=== PATIENT | male | born 1970 | race Caucasian/White ===

== ENCOUNTER 2017-03-28 11:07 | Observation (INO) ==
--- NOTE | 2017-03-28 11:28 | Emergency Department Note ---
Disposition Clinical Impression: Chest pain Qualifiers: Chest pain type: unspecified Qualified Code(s): R07.9 - Chest pain, unspecified Hypertension Qualifiers: Hypertension type: essential hypertension Qualified Code(s): I10 - Essential ( primary) hypertension Disposition: Admitted As Inpatient Condition: Good Referrals: Baljeet Richards MD [Primary Care Provider] - Forms: ED Satisfaction Letter Time of Disposition: 12:16 Chest Pain HPI - General Chief Complaint: ED Chest Pain Stated Complaint: CP Source: patient, family Limitations: no limitations Vital Signs Reviewed: Yes Nursing Notes Reviewed: Yes - History of Present Illness HPI Narrative: 46-year-old with the risk factor of high cholesterol who comes in complaining of intermittent chest pain for last month. Over the last week as gotten progressively worse with radiation into his jaw and shoulder. Patient does have some shoulder issues states that this is a little bit different than what been associated with that shoulder. Pt complaint: chest pain Onset (ago): week(s) Duration: intermittent (4) Onset: during rest, during exertion Pain Location: substernal, left chest Severity: moderate Severity scale (1-10): 7 Quality: tightness, aching, heaviness Pain Radiation: LUE, neck Improves with: nothing Worsens with: nothing Associated symptoms: Denies: dyspnea Treatments prior to arrival chest pain: none - Related Data Allergies Allergy/AdvReac Type Severity Reaction Status Date / Time No Known Allergies Allergy Verified 03/28/17 11:08 All systems ED: reviewed and negative except as stated. Constitutional: Denies: fever, chills, weakness, weight change Eyes: Denies: eye pain, eye discharge, vision change ENT ED: Denies: ear pain, throat pain, dental pain, hearing loss, epistaxis, congestion, dysphagia Cardiovascular: Reports: chest pain. Denies: palpitations, dyspnea on exertion , edema, syncope Respiratory: Denies: cough, dyspnea, wheezes, hemoptysis, stridor Gastrointestinal: Denies: abdominal pain, nausea, vomiting, diarrhea, constipation, hematemesis, melena, hematochezia Genitourinary: Denies: urgency, dysuria, frequency, hematuria Musculoskeletal: Denies: back pain, neck pain, arthralgia, myalgia Integumentary: Denies: rash, abrasion, lesions Neurological: Denies: headache, weakness, numbness, paresthesias, confusion, abnormal gait, vertigo Psychiatric: Denies: anxiety, depression, suicidal thoughts, homicidal thoughts , auditory hallucinations, visual hallucinations Endocrine: Denies: fatigue Hematological/Lymphatic: Denies: easy bleeding, easy bruising Allergic/Immunologic: Denies: facial swelling, urticaria Chest Pain PMH - Past Medical History Medical history: Reports: no medical history Psychiatric history: Reports: no psych history - Social History Smoking Status: Never smoker Alcohol use: Reports: occasionally Drug use: Reports: none Physical Exam - General Limitations: no limitations General appearance: alert, in no apparent distress - Head Head exam: atraumatic, normocephalic, normal inspection - Eye Eye exam: Present: normal appearance, PERRL, EOMI - ENT ENT exam: normal exam, normal oropharynx, mucous membranes moist - Neck Neck exam: Present: normal inspection, full ROM, trachea midline - Chest Chest inspection: Present: normal inspection, symmetric chest wall rise - Respiratory Respiratory exam: Present: normal lung sounds bilaterally - Cardiovascular Cardiovascular exam: Present: regular rate, normal rhythm, normal heart sounds - Abdominal Exam Abdominal exam: Present: soft, Non-Tender. Absent: tenderness, distention, guarding, rebound, rigidity - Extremities Exam Extremities exam: Present: normal inspection, full ROM. Absent: tenderness, pedal edema - Expanded Lower Extremity Exam Neurovascular/Tendon exam: Absent: motor deficit, sensory deficit, tendon deficit Gait: observed and normal - Back Exam Back exam: Present: normal inspection, full ROM. Absent: tenderness - Neurological Exam Neurological exam: Present: alert, oriented X3 - Psychiatric Psychiatric exam: Present: normal affect, normal mood - Skin Skin exam: Present: warm, dry, intact, normal color Course - Reevaluation(s) Reevaluation #1: 46-year-old who has exhibited hypertension here and has a history of elevated cholesterol comes in with intermittent chest pain for last several weeks. Initial EKG shows some repolarization no acute STEMI. Initial troponin was negative. Patient will be admitted for further evaluation and treatment. Time: 12:15 - Consultations Consultation #1: Discussed with Dr. Bowden, admit. Time: 12:16 Vital Signs Temperature 97.7 F 03/28/17 11:08 Pulse Rate 86 03/28/17 11:08 Respiratory Rate 18 03/28/17 11:08 Blood Pressure 166/101 01/02/18 11:08 O2 Sat by Pulse Oximetry 98 03/28/17 11:08 Temperature 97.7 F 03/28/17 11:08 Pulse Rate 86 03/28/17 11:08 Respiratory Rate 18 03/28/17 11:08 Blood Pressure 166/101 03/28/17 11:08 O2 Sat by Pulse Oximetry 98 03/28/17 11:08 Oxygen Delivery Oxygen Delivery Room Air Chest Pain - Lab Data Result diagrams: 03/28/17 11:23 03/28/17 11:23 Lab Results 03/28/17 03/28/17 03/28/17 Range/Units 11:23 11:23 11:23 WBC 5.2 (4.3-11.1) K/mcL RBC 5.74 H (4.19-5.50) M/mcL Hgb 15.5 (12.9-16.9) g/dL Hct 47.3 (37.5-50.1) % MCV 82.4 L (83.0-100.0) fL MCH 27.0 L (28.0-33.3) pg MCHC 32.8 (31.6-35.5) g/dL RDW 13.3 (11.5-14.5) % Plt Count 234 (140-400) K/mcL MPV 10.3 (9.4-12.4) fL Immature Gran % 0.2 (0-4) % Seg Neutrophils % 62.4 % Lymphocytes % 28.5 % Monocytes % 6.2 % Eosinophils % 1.7 % Basophils % 1.0 % Neutrophils # 3.2 (1.6-8.9) K/mcL Lymphocytes # 1.5 (0.6-4.6) K/mcL Monocytes # 0.3 (0.0-1.3) K/mcL Eosinophils # 0.1 (0.0-0.6) K/mcL Basophils # 0.1 (0.0-0.2) K/mcL Sodium 139 (136-145) mEq/L Potassium 4.3 (3.5-5.1) mEq/L Chloride 104 (98-107) mEq/L Carbon Dioxide 30 H (23-29) mEq/L BUN 18 (6-20) mg/dL Creatinine 1.06 (0.70-1.30) mg/dL Est GFR ( Amer) > 60 (> 60) Est GFR (Non-Af Amer) > 60 (> 60) BUN/Creatinine Ratio 17 (6-26) Glucose 101 (70-105) mg/dL Calculated Osmolality 290 (280-300) Calcium 9.6 (8.6-10.3) mg/dL Troponin I < 0.03 (< 0.04) ng/mL - EKG Data EKG attestation: Yes I reviewed and interpreted this EKG. EKG shows normal: sinus rhythm Rate: bradycardia Rhythm: NSR [place]/QRS: IVCD Interpretation: no acute changes Heart Score - Score History: Moderately Suspicious EKG: Non Specific repolarisation Disturbance Age: Less than 45 Risk Factors: 1-2 risk factors Troponin: Less than normal limit HEART Score Total: 3
[2017-03-28 11:42] LABS: Basophils # 0.1 K/mcL (0.0-0.2); Eosinophils # 0.1 K/mcL (0.0-0.6); Eosinophils % 1.7 %; Hematocrit 47.3 % (37.5-50.1); Hemoglobin 15.5 g/dL (12.9-16.9); Immature Granulocytes % 0.2 % (0-4); Lymphocytes # 1.5 K/mcL (0.6-4.6); Lymphocytes % 28.5 %; Mean Corpuscular HGB Conc 32.8 g/dL (31.6-35.5); Mean Corpuscular Volume 82.4 fL (83.0-100.0); Mean Platelet Volume 10.3 fL (9.4-12.4); Monocytes # 0.3 K/mcL (0.0-1.3); Monocytes % 6.2 %; Neutrophils # 3.2 K/mcL (1.6-8.9); Platelet Count 234 K/mcL (140-400); Red Blood Count 5.74 M/mcL (4.19-5.50); Red Cell Distribution Width 13.3 % (11.5-14.5); Segmented Neutrophils % 62.4 %
[2017-03-28 11:53] LABS: BUN/Creatinine Ratio 17 (6-26); Blood Urea Nitrogen 18 mg/dL (6-20); Calcium 9.6 mg/dL (8.6-10.3); Carbon Dioxide 30 mEq/L (23-29); Chloride 104 mEq/L (98-107); Glucose 101 mg/dL (70-105); Osmolality,Calculated 290 (280-300); Potassium 4.3 mEq/L (3.5-5.1); Sodium 139 mEq/L (136-145); eGFR For African Americans > 60 (> 60); eGFR For Non-African Americans > 60 (> 60)
[2017-03-28] MEDS ORDERED: Aspirin 81 MG TAB.CHEW PO STA (12:16)
--- NOTE | 2017-03-28 13:41 | Internal Med History&Physical ---
Date of Encounter: 03/29/17 Time of Encounter: 13:37 Assessment and Plan (1) Chest pain Current visit: Yes Status: Acute 46/male Works as a field operations supervisor in [employer] Has ongoing chest pain for more than a month. Came to emergency room for persistent ongoing chest pain. Heart score: 3. EKG is within acceptable range. Plan: Admit as observation. Aspirin/statin/beta araseli. Serial troponins 3. Cardiac diet. Echocardiogram. If the troponins negative and echocardiogram is normal then please consider stress test. If any abnormalities of the above mentioned workup planned and please inform cardiology. Of note: I have examined this patient in the emergency room #10. Plan of care was discussed with the patient. Patient verbalized understanding. Qualifiers: Chest pain type: unspecified Qualified Code(s): R07.9 - Chest pain, unspecified (2) Hypertension Current visit: Yes Status: Acute Presently blood pressure is very well controlled and we will resume home medication Qualifiers: Hypertension type: essential hypertension Qualified Code(s): I10 - Essential (primary) hypertension (3) DVT prophylaxis Current visit: Yes Status: Acute scd Medical decision making: This patient has a moderate to severe risk of worsening in spite of being on appropriate medication due to Underlying comorbid condition Internal Medicine - H&P: HPI Chief complaint: Chest pain Admitted From: Emergency Dept Plans for Post Hospital Care: Home History of present illness: PCP: Dr. Baljeet pugh. Brief past medical history: Hyperlipidemia, obesity. History of present medical illness: Patient is complaining of left-sided chest pain which is precordial in nature radiating to the left shoulder and left arm, worsening with exertion and stress and relieved with rest. Patient claims that he has a persistent chest pain since first of February 2017. Patient tried multiple attempts to get to his primary care provider but somehow patient could not get to see his primary care provider and over the last 72 hours, patient's pain is progressively getting worse. Due to the worsening nature of the pain patient decided to come to the emergency room for further evaluation. Patient denies shortness of breath, nausea, vomiting, abdominal pain, dizziness and diarrhea. Workup in the emergency room: Patient was evaluated in the emergency room baseline labs were drawn. EKG was done. His labs EKG and chest x-ray is unremarkable. Reason for admission: chest pain to rule out ACS. Family history: Noncontributory Past Med Surg Social Fam HX - Past Medical History Medical history: no medical history Psychiatric history: no psych history - Social History Smoking Status: Never smoker Smokeless Tobacco Status: No Alcohol use: occasionally Drug use: none Internal Medicine - H&P: Meds Cholecalciferol (D-3) [Vitamin D] 1,000 unit PO DAILY 03/28/17 [History] Escitalopram [Lexapro] 20 mg PO DAILY 03/28/17 [History] Folic Acid/B Cmplx C/Rice Bran [Vitamin B-Complex & C Caplet] 1 tab PO DAILY 05/14 [History] [place]-3/Dha/Epa/Fish Oil [Fish Oil 1,000 mg Softgel] 1 tab PO DAILY 03/28/17 [ History] Pantoprazole Sodium [Protonix] 40 mg PO DAILY 03/28/17 [History] Red Yeast Rice [Red Yeast Rice] 600 mg PO DAILY 03/28/17 [History] 3 Allergy/AdvReac Type Severity Reaction Status Date / Time No Known Allergies Allergy Verified 03/28/17 12:41 All Systems PM: A 10-system review of systems was performed and is negative for pertinent findings except as documented above in the HPI. - Constitutional Constitutional: no chills, no fever(s), no night sweats - EENT Eyes: no change in vision, no discharge, no pain, no photophobia Ears: no ear discharge, no ear pain, no tinnitus Nose, mouth and throat: no dysphagia, no nasal discharge, no neck pain, no sore throat - Cardiovascular Cardiovascular ROS IM: chest pain, diaphoresis, dyspnea on exertion, no dyspnea , no lightheadedness, no palpitations, no syncope - Respiratory Respiratory: no cough, no dyspnea, no wheezing, no excessive phlegm production - Gastrointestinal Gastrointestinal: no abdominal pain, no diarrhea, no hematemesis, no hematochezia, no melena, no nausea, no vomiting - Musculoskeletal Musculoskeletal ROS IM: no numbness, no tingling - Integumentary Integumentary IM: no rash, no unusual bruising - Neurological Neurological ROS: no confusion, no convulsions, no focal weakness, no numbness, no tingling, no tremor(s) - Hematologic/Lymphatic Hematologic/Lymphatic: no easy bruising - Constitutional Vitals: Temp Pulse Resp BP Pulse Ox 97.7 F 86 18 166/101 98 03/28/17 11:08 03/28/17 11:08 03/28/17 11:08 03/28/17 11:08 03/28/17 11:08 General appearance: Present: A&O X 3, pleasant, no acute distress, answers questions appropriately - Head Head exam: Present: atraumatic, normocephalic - Eye Eye exam: Present: PERRL, conjuntiva pink, sclera anicteric Pupils: Present: PERRL - Neck Neck exam general surgery: Present: supple, trachea midline. Absent: lymphadenopathy - Respiratory Respiratory exam: Present: CTAB. Absent: accessory muscle use, rales, rhonchi, wheezes - Cardiovascular Cardiovascular exam: Present: RRR, +S1, +S2. Absent: diastolic murmur, gallop, rubs, systolic murmur - GI/Abdominal GI/Abdominal exam: Present: normal bowel sounds, soft, no peritoneal signs. Absent: distended, tenderness - Extremities Exam Extremities exam: Present: warm, radial pulses palpable and symmetrical. Absent : calf tenderness, cyanotic, pedal edema - Neurological Exam Neurological exam: Present: CN II-XII intact, oriented X3, no focal deficits. Absent: pronater drift, facial droop, speech deficit - Skin Skin exam: Present: dry, intact Internal Med - H&P Results - Labs CBC & Chem 7: 03/29/17 00:42 03/29/17 00:42 Labs: Discussed with the emergency room physician
[2017-03-28] MEDS ORDERED: Naloxone 0.4 MG/ML INJ IVP PRN (13:48)
[2017-03-28] MEDS ORDERED: Mag Hydrox/Al Hydrox/Simeth 30 ML UDC PO PRN (13:48)
[2017-03-28] MEDS ORDERED: Acetaminophen 325 MG TABLET PO PRN (13:48)
--- NOTE | 2017-03-28 17:14 | Electrocardiograph Report ---
[address] [place], [place] [address] Test Date: 2017-03-28 Pat Name: John Morales Department: 104 Room: 3B Gender: M [employer] Manager: LORI : 1970 Requested By: Eric Ibarra Order Number: [id number] Reading MD: Chao Cooper DO Measurements Intervals [place] Rate: 56 P: 44 SD: 160 QRS: 12 QRSD: 114 T: 52 QT: 410 QTc: 403 Interpretive Statements SINUS BRADYCARDIA INTRAVENTRICULAR CONDUCTION DELAY Electronically Signed On 03-28-2017 17:13:05 EST by Chao Cooper DO
[2017-03-29 01:42] LABS: Basophils # 0.1 K/mcL (0.0-0.2); Basophils % 0.9 %; Eosinophils # 0.1 K/mcL (0.0-0.6); Eosinophils % 2.3 %; Hematocrit 42.5 % (37.5-50.1); Hemoglobin 14.1 g/dL (12.9-16.9); Immature Granulocytes % 0.2 % (0-4); Lymphocytes # 1.8 K/mcL (0.6-4.6); Mean Corpuscular HGB Conc 33.2 g/dL (31.6-35.5); Mean Corpuscular Hemoglobin 27.1 pg (28.0-33.3); Mean Corpuscular Volume 81.6 fL (83.0-100.0); Mean Platelet Volume 10.6 fL (9.4-12.4); Monocytes # 0.5 K/mcL (0.0-1.3); Monocytes % 8.8 %; Neutrophils # 3.1 K/mcL (1.6-8.9); Platelet Count 217 K/mcL (140-400); Red Blood Count 5.21 M/mcL (4.19-5.50); Red Cell Distribution Width 13.5 % (11.5-14.5); Segmented Neutrophils % 55.8 %
[2017-03-29 01:47] LABS: INR 1.1; Prothrombin Time 11.5 Seconds (9.4-12.1)
[2017-03-29 01:50] LABS: Activated Partial Thrombo Time 29.6 Seconds (26.0-36.0)
[2017-03-29 01:57] LABS: Alanine Aminotransferase 17 Units/L (7-52); Albumin 3.9 g/dL (3.5-5.7); Albumin/Globulin Ratio 1.9 (1.1-2.2); Alkaline Phosphatase 64 Units/L (34-104); Aspartate Amino Transferase 16 Units/L (13-39); BUN/Creatinine Ratio 18 (6-26); Bilirubin,Total 0.4 mg/dL (0.3-1.0); Blood Urea Nitrogen 18 mg/dL (6-20); Calcium 9.1 mg/dL (8.6-10.3); Carbon Dioxide 27 mEq/L (23-29); Chloride 108 mEq/L (98-107); Chol/HDL Ratio 4.4 (0-4.9); Cholesterol 214 mg/dL (< 200); Globulin 2.1 g/dL (2.4-3.5); Glucose 92 mg/dL (70-105); HDL Cholesterol 49 mg/dL (40-59); LDL Cholesterol,Calculated 129 mg/dL (0-99); Osmolality,Calculated 292 (280-300); Phosphorous 4.3 mg/dL (2.7-4.5); Potassium 4.1 mEq/L (3.5-5.1); Sodium 140 mEq/L (136-145); Triglycerides 182 mg/dL (< 150); eGFR For African Americans > 60 (> 60); eGFR For Non-African Americans > 60 (> 60)
[2017-03-29] MEDS: (Red Yeast Rice [Red Yeast Rice] 600 MG) PO SCH (08:05)
[2017-03-29] MEDS: (Omega-3/Dha/Epa/Fish Oil [Fish Oil 1,000 Mg Softgel]) PO SCH (08:05)
[2017-03-29] MEDS: Vitamin B Complex/Vit C/Vit E 1 EACH TABLET PO SCH (08:07)
[2017-03-29] MEDS: Cholecalciferol (D-3) 1,000 UNIT TABLET PO SCH (08:07)
[2017-03-29] MEDS: Aspirin Enteric Coated 81 MG Tablet PO SCH (08:07)
[2017-03-29] MEDS ORDERED: Regadenoson 0.4 MG/5 ML SYRINGE IVP ONE (08:48)
--- NOTE | 2017-03-29 12:22 | Internal Med Progress Note ---
Date of Encounter: 03/29/17 Time of Encounter: 12:20 - Assessment and plan (1) Chest pain Current Visit: Yes Status: Acute Assessment and plan: Patient is admitted for chest pain. At the time of examination today patient denies any chest pain. Echocardiogram: Ejection fraction 55%, no pulmonary hypertension. LDL: 129. Patient is presently on Lipitor 20 mg every night. I was informed that patient has a stress test which is scheduled for 2 days. Qualifiers: Chest pain type: unspecified Qualified Code(s): R07.9 - Chest pain, unspecified (2) Hypertension Current Visit: Yes Status: Acute Assessment and plan: Blood pressure is within acceptable range Qualifiers: Hypertension type: essential hypertension Qualified Code(s): I10 - Essential (primary) hypertension (3) DVT prophylaxis Current Visit: Yes Status: Acute - Subjective Interval history: Patient seen and examined. Chart reviewed. Patient is comfortably walking around the room. Patient does not have any chest pain, shortness of breath, nausea, vomiting, abdominal pain, dizziness or diarrhea. - Constitutional Vitals: Temp Pulse Resp BP Pulse Ox 97.7 F 71 16 138/92 94 03/29/17 11:24 03/29/17 11:24 03/29/17 11:24 03/29/17 11:24 03/29/17 11:24 General appearance: Present: A&O X 3, pleasant, no acute distress, answers questions appropriately - Head Head exam: Present: atraumatic, normocephalic - Eye Eye exam: Present: PERRL, conjuntiva pink, sclera anicteric Pupils: Present: PERRL - Neck Neck exam general surgery: Present: supple, trachea midline. Absent: lymphadenopathy - Respiratory Respiratory exam: Present: CTAB. Absent: accessory muscle use, rales, rhonchi, wheezes - Cardiovascular Cardiovascular exam: Present: RRR, +S1, +S2. Absent: diastolic murmur, gallop, rubs, systolic murmur - GI/Abdominal GI/Abdominal exam: Present: normal bowel sounds, soft, no peritoneal signs. Absent: distended, tenderness - Extremities Exam Extremities exam: Present: warm, radial pulses palpable and symmetrical. Absent : calf tenderness, cyanotic, pedal edema - Neurological Exam Neurological exam: Present: CN II-XII intact, oriented X3, no focal deficits. Absent: pronater drift, facial droop, speech deficit - Skin Skin exam: Present: dry, intact Internal Medicine: Result - Labs CBC & Chem 7: 03/29/17 00:42 03/29/17 00:42 Labs: Short CBC 03/29/17 Range/Units 00:42 WBC 5.6 (4.3-11.1) K/mcL Hgb 14.1 (12.9-16.9) g/dL Hct 42.5 (37.5-50.1) % Plt Count 217 (140-400) K/mcL Neutrophils # 3.1 (1.6-8.9) K/mcL BMP 03/29/17 00:42 Sodium 140 Potassium 4.1 Chloride 108 H Carbon Dioxide 27 BUN 18 Creatinine 1.01 Glucose 92 Calcium 9.1 Cardiac Enzymes 03/28/17 03/29/17 03/29/17 Range/Units 17:43 00:42 05:25 Troponin I < 0.03 0.03 < 0.03 (< 0.04) ng/mL Liver Function 03/29/17 Range/Units 00:42 Total Bilirubin 0.4 (0.3-1.0) mg/dL AST 16 (13-39) Units/L ALT 17 (7-52) Units/L Alkaline Phosphatase 64 (34-104) Units/L Albumin 3.9 (3.5-5.7) g/dL - ABG Interpretation ABG results: PT/INR, D-dimer PT 11.5 Seconds (9.4-12.1) 03/29/17 00:42 - Impressions Impressions Echocardiogram 03/28/17 13:52 Impressions: LVEF 55%. Normal right ventricular structure and function. No significant valvular dysfunction. No pulmonary hypertension. Left Ventricular Wall Motion: Rest Echo Findings All wall segments showed normal motion. Findings: Study Quality * Technically adequate exam. ECG Findings * Sinus bradycardia. Left Ventricle * LVEF 55%. * Normal LV chamber size, wall thickness and function. * Indeterminate diastolic function. Probably reduced Med E Juanito Right Ventricle * Normal right ventricular structure and function. Left Atrium * Normal left atrial size. Right Atrium * Normal right atrial size. Aortic Valve * No aortic regurgitation. * Aortic valve not well visualized. * No aortic stenosis. Mitral Valve * Normal mitral valve structure. * No mitral stenosis. * Trace mitral regurgitation. Tricuspid Valve * Normal tricuspid valve structure. * Trace tricuspid regurgitation. * Estimated RA pressure is 3 mmHg. * Estimated RVSP is 22 mmHg. * No pulmonary hypertension. Pulmonic Valve * Pulmonic valve is not well visualized. * No pulmonic stenosis. * Trace pulmonic regurgitation. Pulmonary Artery * Pulmonary artery not well visualized. Aorta * Normally sized aortic root. Pericardium * There is no pericardial effusion present. Interatrial Septum * No evidence of PFO by color Doppler. IVC * Normal IVC dimensions and inspiratory collapse. Consult Discharge Plan - Plan Referrals: Baljeet Richards MD [Primary Care Provider] -
[2017-03-30] MEDS: Cholecalciferol (D-3) 1,000 UNIT TABLET PO SCH (10:28)
[2017-03-30] MEDS: Vitamin B Complex/Vit C/Vit E 1 EACH TABLET PO SCH (10:28)
[2017-03-30] MEDS: Aspirin Enteric Coated 81 MG Tablet PO SCH (10:29)
[2017-03-30] MEDS: (Red Yeast Rice [Red Yeast Rice] 600 MG) PO SCH (10:30)
[2017-03-30] MEDS: (Omega-3/Dha/Epa/Fish Oil [Fish Oil 1,000 Mg Softgel]) PO SCH (10:30)
[2017-03-30 11:45] VITALS: BP 138/85
--- NOTE | 2017-03-30 13:59 | Event Note ---
Date of Encounter: 03/30/17 Time of Encounter: 14:00 - Cardiology Event Note Discussed with Dr. Bowden, patient has stress +CP -EKG - imaging. Ruled out for OK and currently no angina. Recommend aspirin 81mg daily and Imdur 30mg daily, will schedule outpatient appointment with us.
--- NOTE | 2017-03-30 14:41 | Discharge Summary ---
Date of Encounter: 04/08/17 Time of Encounter: 14:37 - Discharge Diagnosis (1) Chest pain Priority: Primary Status: Acute Qualifiers: Chest pain type: unspecified Qualified Code(s): R07.9 - Chest pain, unspecified (2) Hypertension Priority: Secondary Status: Acute Qualifiers: Hypertension type: essential hypertension Qualified Code(s): I10 - Essential (primary) hypertension (3) DVT prophylaxis Priority: Secondary Status: Acute - Discharge Medications Prescriptions: Aspirin Enteric Coated [Aspirin EC] 81 mg PO DAILY #30 tablet. Atorvastatin [Lipitor] 20 mg PO HS #30 tablet Isosorbide MONOnitrate (24 HR) [Imdur] 30 mg PO DAILY #30 tab.er.24h Home Medications: Cholecalciferol (D-3) [Vitamin D] 1,000 unit PO DAILY 03/28/17 [History] Escitalopram [Lexapro] 20 mg PO DAILY 03/28/17 [History] Folic Acid/B Cmplx C/Rice Bran [Vitamin B-Complex & C Caplet] 1 tab PO DAILY 05/14 [History] [place]-3/Dha/Epa/Fish Oil [Fish Oil 1,000 mg Softgel] 1 tab PO DAILY 03/28/17 [ History] Pantoprazole Sodium [Protonix] 40 mg PO DAILY 03/28/17 [History] Red Yeast Rice 600 mg PO DAILY 03/28/17 [History] Aspirin Enteric Coated [Aspirin EC] 81 mg PO DAILY #30 tablet. 03/30/17 [Rx] Atorvastatin [Lipitor] 20 mg PO HS #30 tablet 03/30/17 [Rx] Isosorbide MONOnitrate (24 HR) [Imdur] 30 mg PO DAILY #30 tab.er.24h 03/30/17 [ Rx] Allergies/Adverse Reactions: 3 Allergy/AdvReac Type Severity Reaction Status Date / Time No Known Allergies Allergy Verified 03/28/17 12:41 Procedures/tests Complete & Pending: Procedures Performed prior 72 hours Category Date Time Status NM shivani perf SPECT multi [NM] Routine Exams 03/29/17 08:21 Taken EV echocardiogram Routine Y 03/28/17 13:52 Completed SP exercise nuclear stress Routine Y 03/29/17 08:21 Completed Date of admission: 03/28/17 12:55 Primary care physician: Baljeet Richards MD Discharging clinician: Ger oBwden - Patient Status Disposition: Home, Self-Care Condition: Good Functional capacity at discharge: independent ambulation Overall status at discharge: patient is progressing back to baseline - Discharge Instructions Instructions: Aspirin/Codeine (By mouth), Isosorbide Mononitrate (By mouth), Atorvastatin (By mouth), Chest Pain (DC), Chronic Hypertension (DC) Follow Up With: Everardo Yancey MD [Partnered Physician] - 04/03/17 11:15 am Baljeet Richards MD [Primary Care Provider] - 04/03/17 3:00 pm - Diet and Activity Activity: increase activity as tolerated Diet: low fat, low cholesterol, low salt diet Interval History: PCP: Dr. Baljeet pugh. Brief past medical history: Hyperlipidemia, obesity. History of present medical illness: Patient is complaining of left-sided chest pain which is precordial in nature radiating to the left shoulder and left arm, worsening with exertion and stress and relieved with rest. Patient claims that he has a persistent chest pain since first February 2017. Patient tried multiple attempts to get to his primary care provider but somehow patient could not get to see his primary care provider and over the last 72 hours, patient's pain is progressively getting worse. Due to the worsening nature of the pain patient decided to come to the emergency room for further evaluation. Patient denies shortness of breath, nausea, vomiting, abdominal pain, dizziness and diarrhea. Workup in the emergency room: Patient was evaluated in the emergency room baseline labs were drawn. EKG was done. His labs EKG and chest x-ray is unremarkable. Reason for admission: chest pain to rule out ACS. Hospital course: Hospital course: Patient was hospitalized. Troponin 3: Negative LDL: 129 Echocardiogram: Ejection fraction 55%, no pulmonary hypertension, no significant valvular dysfunction. Stress test: Gated EF 59%, perfusion imaging negative for ischemia or infarct Patient her small sized, mid intensity, fixed inferior perfusion defect: This consistent with the artifact (please note that patient's BMI is 39.) During the stress test patient had a chest pain. I discussed this case with loan adviser Dr. Yancey Plan: Aspirin 81 mg/Imdur 30 mg/Lipitor 20 mg Follow up with cardiology next week. Follow-up with the primary care next week. I personally called patient's primary care provider office. I spoke with Ms. Guerra and left my number to his PCP to call me back sooner I can update him regarding this development. All questions answered. - Time Spent with Patient Total time spent providing and/or coordinating discharge services: - Constitutional Vitals: Temp Pulse Resp BP Pulse Ox 97.9 F 56 16 138/85 96 03/30/17 11:45 03/30/17 11:45 03/30/17 11:45 03/30/17 11:45 03/30/17 11:45 General appearance: Present: A&O X 3, pleasant, no acute distress, answers questions appropriately - Head Head exam: Present: atraumatic, normocephalic - Eye Eye exam: Present: PERRL, conjuntiva pink, sclera anicteric Pupils: Present: PERRL - Neck Neck exam general surgery: Present: supple, trachea midline. Absent: lymphadenopathy - Respiratory Respiratory exam: Present: CTAB. Absent: accessory muscle use, rales, rhonchi, wheezes - Cardiovascular Cardiovascular exam: Present: RRR, +S1, +S2. Absent: diastolic murmur, gallop, rubs, systolic murmur - GI/Abdominal GI/Abdominal exam: Present: normal bowel sounds, soft, no peritoneal signs. Absent: distended, tenderness - Extremities Exam Extremities exam: Present: warm, radial pulses palpable and symmetrical. Absent : calf tenderness, cyanotic, pedal edema - Neurological Exam Neurological exam: Present: CN II-XII intact, oriented X3, no focal deficits. Absent: pronater drift, facial droop, speech deficit - Skin Skin exam: Present: dry, intact
== END 2017-03-30 15:34 | disposition home or self-care (01) ==
LOC: EMEROO 11:07 → 3BNU 11:07
PROVIDERS: ADMIT Internal Medicine; ATTEND Registered Nurse